=== PATIENT | male | born 1980 | race African-American/Black ===

== ENCOUNTER 2017-07-05 14:25 | Emergency (ER) | payer SELFPAY ==
[~2017-07-05] VITALS: Ht 167.6 cm; Wt 97.4 kg
[~2017-07-05 14:25] MED LIST: no home med
[2017-07-05 18:18] LABS: HEMOGLOBIN 15.6 G/DL (12.5-16.6); MCH 32.1 PG (29.0-34.0); MCHC 35.5 G/DL (30.0-36.0); MCV 90.5 FL (86-99); RBC DIS.WIDTH-CV 13.3 % (11.8-14.6); RED BLOOD COUNT 4.86 M/uL (4.00-5.50)
[2017-07-05 18:30] LABS: CHLORIDE 105 mEq/L (99-109); POTASSIUM 3.8 mEq/L (3.7-5.4); SODIUM 135 mEq/L (136-147)
[2017-07-05 18:31] LABS: GLUCOSE 91 mg/dL (70-99)
[2017-07-05 18:35] LABS: GFR ESTIMATE (CALCULATED) > 59 mL/min/ (58.99-99999)
[2017-07-05 18:36] LABS: UREA NITROGEN (BUN) 11 mg/dL (9-23)
[2017-07-05 18:59] LABS: PLAT.SUFFICIENCY ADEQUATE
[2017-07-05] MEDS ORDERED: FLONASE16 G1 BOTH NARES (19:18)
[2017-07-05 19:23] VITALS: BP 148/87
[2017-07-05 19:24] LABS: SOURCE URINE
[2017-07-05 20:51] LABS: PLATELET COUNT 189 K/uL (156-360)
[2017-07-06 09:01] LABS: TREPONEMA ANTIBODY NEGATIVE (NEGATIVE)
[2017-07-06 12:24] LABS: CHLAMYDIA TRACHOMATIS NEGATIVE; NEISSERIA GONORRHOEAE NEGATIVE
== END 2017-07-05 19:39 | disposition home or self-care (01) ==
LOC: EME 14:25
PROVIDERS: Nurse Practitioner Family
DX: H65.90 Unspecified nonsuppurative otitis media, unspecified ear (principal); Z71.1 Person with feared health complaint in whom no diagnosis is made; E78.5 Hyperlipidemia, unspecified; F17.200 Nicotine dependence, unspecified, uncomplicated
CPT/HCPCS: 80048; 85027; 86780; 87491; 87591; 99281; 99284; J0561